=== PATIENT | female | born 1985 | race American Indian/Alaskan Native ===

== ENCOUNTER 2017-01-31 21:19 | Emergency (ER) | payer MEDICAID ==
[2017-02-01] MEDS ORDERED: TYLENOL PO ONE (01:50)
[2017-02-01] MEDS ORDERED: TYLENOL ONE (01:53)
[2017-02-01] MEDS ORDERED: MOTRIN PO ONE (03:55)
[2017-02-01] MEDS ORDERED: VALIUM IM ONE (03:55)
[2017-02-01] MEDS ORDERED: TRIPLE ANTIBIOTIC TP ONE (03:55)
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
[2017-02-01] MEDS ORDERED: BOOSTRIX IM ONE (04:33)
[2017-02-01 05:15] VITALS: BP 137/97
== END 2017-02-01 05:15 | disposition home or self-care (01) ==
LOC: ED 21:19
DX: S60.413A Abrasion of left middle finger, initial encounter (principal); J45.909 Unspecified asthma, uncomplicated; Y04.8XXA Assault by other bodily force, initial encounter; Y93.89 Activity, other specified; Y92.89 Other specified places as the place of occurrence of the external cause; Y99.8 Other external cause status
CPT/HCPCS: 90471; 90715; 96372; 99282; J3360; A6250